=== PATIENT | female | born 1985 | race Caucasian/White ===

== ENCOUNTER 2020-02-08 21:04 | Emergency (ER) | payer OTHER ==
[~2020-02-08] VITALS: Ht 161.3 cm; Wt 100.0 kg
[~2020-02-08 21:04] MED LIST: BACTRIM DS1 TAB PO; BENZONATATE200 MG PO; BUPROPION300 MG PO; CELEXA20 MG OR; CELEXA40 MG PO; CITALOPRAM HYDR20 MG PO; FIORICET PO; FIORICET/CODEIN1 CAP PO; LORYNA1 TAB PO; MACROBID100 MG OR; MEDDOSEPAK PO; OCELLA1 TAB PO; OMNICEF300 M1 PO; PORTIA-28 OR; PRENATABS OR; TRANSDERM-SCOP1.5 MG TD; ZESTRIL5 M1 PO; ZITHROMAX250 MG PO
[2020-02-08] MEDS ORDERED: XANAX0.5 MG PO (21:56)
[2020-02-08] MEDS ORDERED: LISINOPRIL20 MG PO (21:56)
[2020-02-08] MEDS ORDERED: ENSKYCE1 TAB PO (21:57)
[2020-02-08] MEDS ORDERED: LEVOTHYROXIN125 MCG PO (21:58)
[2020-02-08] MEDS ORDERED: LIOTHYRONINE5 MCG PO (21:59)
[2020-02-08 22:04] VITALS: BP 142/76
== END 2020-02-08 23:41 | disposition home or self-care (01) ==
LOC: ED 21:04
DX: R51.9 Headache, unspecified (principal); Z20.828 Contact with and (suspected) exposure to other viral communicable diseases

== ENCOUNTER 2020-10-01 20:49 | Emergency (ER) | payer OTHER ==
[~2020-10-01] VITALS: Ht 162.6 cm; Wt 90.0 kg
[~2020-10-01 20:49] MED LIST changes: +ENSKYCE1 TAB PO; +LIOTHYRONINE5 MCG PO; +LISINOPRIL20 MG PO; +NP THYROID30 MG PO; +XANAX0.5 MG PO
[2020-10-01] MEDS ORDERED: KEFLEX500 MG PO (22:01)
[2020-10-01] MEDS ORDERED: BACTRIM DS1 TAB PO (22:01)
[2020-10-01 22:37] VITALS: BP 131/59
[2020-10-01] MEDS ORDERED: NP THYROID PO (22:40)
== END 2020-10-01 22:45 | disposition home or self-care (01) ==
LOC: ED 20:49
DX: S40.861A Insect bite (nonvenomous) of right upper arm, initial encounter (principal); L02.413 Cutaneous abscess of right upper limb; E24.9 Cushing's syndrome, unspecified; E06.3 Autoimmune thyroiditis; W57.XXXA Bitten or stung by nonvenomous insect and other nonvenomous arthropods, initial encounter